=== PATIENT | female | born 1990 | race Caucasian/White ===

== ENCOUNTER 2025-04-14 10:17 | Outpatient (CLI) | payer BC, SELFPAY ==
[2025-04-14 20:51] LABS: Hematocrit 41.5 % (37.0-47.0); Hemoglobin 13.4 g/dL (12.2-16.2); Immature Granulocytes % 0.7 %; Mean Corpuscular HGB Conc 32.3 g/dL (31.8-35.4); Mean Corpuscular Hemoglobin 28.3 pg (27.0-31.2); Mean Corpuscular Volume 87.7 fl (81-99); Nucleated Red Blood Cells % 0 %; Platelet Count 254 K/mm3 (142-424); Red Blood Count 4.73 M/mm3 (4.20-5.40); Red Cell Distribution Width-SD 43.3 fL; White Blood Count 5.6 K/mm3 (4.8-10.8)
[2025-04-14 21:30] LABS: Alanine Aminotransferase 46 U/L (12-78); Albumin Level 4.5 g/dl (3.5-5.0); Albumin/Globulin Ratio 1.5 (1.1-1.8); Alkaline Phosphatase 68 U/L (38-126); Anion Gap 17.6 mEq/L (5-15); Aspartate Amino Transferase 34 U/L (14-36); Bilirubin,Total 0.4 mg/dl (0.2-1.3); Blood Urea Nitrogen 18 mg/dl (7-17); Calcium 9.4 mg/dl (8.4-10.2); Carbon Dioxide 26 mmol/L (22.0-30.0); Chloride 94 mmol/L (98-107); Cholesterol 220 mg/dl (140-200); Creatinine,Serum 1.10 mg/dl (0.52-1.04); Estimated Glomerular Filt Rate 58 ml/min (>60); GFR (African American) 70 ML/MIN (>60); Globulin 3.0 g/dL (1.3-3.2); Glucose 75 mg/dl (74-100); HDL Cholesterol 83 mg/dl (40-60); Potassium 4.6 mmoL/L (3.5-5.1); Sodium 133 mmol/L (136-145); Total Protein,Serum 7.5 g/dl (6.3-8.2); Triglycerides 83 mg/dl (30-150)
[2025-04-14 22:04] LABS: Free T4 (Free Thyroxine) 0.97 ng/dl (0.78-2.19)
[2025-04-14 22:20] LABS: Thyroid Stimulating Hormone 4.82 uIU/mL (0.465-4.68)
[2025-04-14 22:30] LABS: Hepatitis C Ab Qual. W/ RFX NEGATIVE (Negative)
[2025-04-15 15:55] LABS: RPR W/RFX Titers Nonreactive (Nonreactive)
[2025-04-16 06:33] LABS: Hepatitis B Surface Antigen Negative (Negative)
== END 2025-04-14 23:59 ==
LOC: LAB.DROPOF 04-16 10:18
PROVIDERS: PCP Student in an Organized Health Care Education/Training Program; Visit Provider Student in an Organized Health Care Education/Training Program
DX: Z00.00 Encounter for general adult medical examination without abnormal findings (principal); Z79.899 Other long term (current) drug therapy; R00.0 Tachycardia, unspecified; Z72.51 High risk heterosexual behavior; Z68.41 Body mass index [BMI] 40.0-44.9, adult; E05.90 Thyrotoxicosis, unspecified without thyrotoxic crisis or storm; Z11.59 Encounter for screening for other viral diseases
CPT/HCPCS: 80053; 80061; 84439; 84443; 85025; 86592; 86803; 87210; 87340; 87389